=== PATIENT | male | born 1955 | race Caucasian/White ===

== ENCOUNTER 2022-02-16 12:01 | Observation (INO) ==
[2022-02-16 13:58] LABS: Basophils # 0.1 10*3/uL (0.0-0.2); Basophils % 0.4 % (0.0-0.8); Eosinophils # 0.3 10*3/uL (0.0-0.87); Eosinophils % 2.2 % (0.00-10.9); Hematocrit 46.2 VOL% (42.0-52.0); Hemoglobin 15.2 GM/DL (14.0-18.0); Immature Granulocytes % 0.3 %; Immature Granulocytes Absolute 0.03 #; Lymphocytes % 17.2 % (21.2-54.2); Mean Corpuscular HGB Conc 32.9 GM/DL (32-36); Mean Corpuscular Volume 88.3 FL (87-102); Mean Platelet Volume 11.1 FL (9.6-12.0); Monocytes # 1.3 10*3/uL (0.11-0.8); Monocytes % 11.6 % (1.7-12.7); Neutrophils % 68.3 % (38.7-73.9); Platelet Count 195 T/CUMM (130-400); Red Blood Count 5.23 MC/CUMM (3.8-5.5); Red Cell Distribution Width 13.8 % (9.3-17.3); White Blood Count 11.5 T/CUMM (4-12)
[2022-02-16 14:17] LABS: Calcium 10.2 MG/DL (8.5-10.1); Osmolality,Calculated 282.5 MOS/KG (273-304); Potassium 4.3 MMOL/L (3.5-5.1)
[2022-02-16] MEDS ORDERED: MORPHINE 10 MG/1 ML VIAL IV STA (14:30)
[2022-02-16] MEDS ORDERED: ONDANSETRON 4 MG/2 ML VIAL IV STA (14:30)
[2022-02-16] MEDS ORDERED: MORPHINE 2 MG/1 ML SYRINGE ONE (14:39)
[2022-02-16] MEDS ORDERED: TEMAZEPAM 15 MG CAPSULE PO PRN (17:45)
[2022-02-16] MEDS ORDERED: ALUMINUM/MAGNES/SIMETH MAX STR 30 ML UDCUP PO PRN (17:45)
[2022-02-16] MEDS ORDERED: MORPHINE 2 MG/1 ML SYRINGE IV PRN (17:45)
[2022-02-16] MEDS ORDERED: MAGNESIUM HYDROXIDE SUSP 30 ML UDCUP PO PRN (17:45)
[2022-02-16] MEDS ORDERED: ONDANSETRON 4 MG/2 ML VIAL IV PRN (17:45)
[2022-02-16] MEDS: SODIUM CHLORIDE 0.9% 1,000 ML IV SCH (18:17)
[2022-02-16] MEDS: METOPROLOL SUCCINATE XL 25 MG TABLET PO SCH (20:13)
[2022-02-16] MEDS: CHOLECALCIFEROL 5,000 UNIT TABLET PO SCH (20:14)
[2022-02-16] MEDS: ROSUVASTATIN 20 MG TABLET PO SCH (20:15)
[2022-02-16] MEDS: ASPIRIN EC 81 MG TABLET PO SCH (20:15)
[2022-02-16] MEDS: FERROUS SULFATE 325 MG TABLET PO SCH (20:15)
[2022-02-16] MEDS: lisinopriL 20 MG TABLET PO SCH (20:16)
[2022-02-16] MEDS: CETIRIZINE 10 MG TABLET PO SCH (20:16)
[2022-02-16] MEDS: ZINC GLUCONATE 50 MG TABLET PO SCH (20:16)
[2022-02-16] MEDS: NIACIN 500 MG TABLET PO SCH (20:16)
[2022-02-16] MEDS: ASCORBIC ACID 500 MG TABLET PO SCH (20:16)
[2022-02-17] MEDS ORDERED: ROPIVACAINE 0.5% 30 ML VIAL ONE (06:30)
[2022-02-17] MEDS ORDERED: LIDOCAINE 1% 5 ML VIAL ONE (06:30)
[2022-02-17] MEDS ORDERED: DEXAMETHASONE 4 MG/1 ML VIAL ONE (06:30)
[2022-02-17] MEDS ORDERED: LIDOCAINE 2% 5 ML VIAL ONE ×2 (06:31→07:35)
[2022-02-17] MEDS ORDERED: fentaNYL 100 MCG/2 ML VIAL ONE (06:34)
[2022-02-17] MEDS ORDERED: MIDAZOLAM 2 MG/2 ML VIAL ONE (06:34)
[2022-02-17] MEDS ORDERED: LACTATED RINGERS 1,000 ML IV SCH (07:00)
[2022-02-17] MEDS ORDERED: ceFAZolin 2,000 MG/50 ML DUPLEX IV ONE (07:00)
[2022-02-17] MEDS ORDERED: ONDANSETRON 4 MG/2 ML VIAL ONE (07:35)
[2022-02-17] MEDS ORDERED: SEVOFLURANE 1 UNIT/15 MINUTE INH ONE (07:35)
[2022-02-17] MEDS ORDERED: propofoL 200 MG/20 ML VIAL IV ONE ×2 (07:35→07:52)
[2022-02-17] MEDS ORDERED: KETAMINE 500 MG/10 ML VIAL ONE (07:47)
[2022-02-17] MEDS ORDERED: LACTATED RINGERS 1,000 ML IV ONE (07:53)
[2022-02-17] MEDS ORDERED: GLYCOPYRROLATE 0.4 MG/2 ML VIAL ONE (08:03)
[2022-02-17] MEDS ORDERED: ePHEDrine 50 MG/ML VIAL ONE (08:08)
[2022-02-17] MEDS ORDERED: HYDROmorphone 1 MG/1 ML SYRINGE ONE (09:03)
[2022-02-17] MEDS ORDERED: HYDROmorphone 1 MG/1 ML SYRINGE IV PRN (09:03)
[2022-02-17] MEDS ORDERED: ONDANSETRON 4 MG/2 ML VIAL IV PRN (09:03)
[2022-02-17] MEDS: PANTOPRAZOLE 40 MG TABLET PO SCH (10:16)
[2022-02-17] MEDS: ceFAZolin 2,000 MG/50 ML DUPLEX IV SCH ×2 (14:30→22:40)
[2022-02-17] MEDS: SODIUM CHLORIDE 0.9% 1,000 ML IV SCH (15:22)
[2022-02-17] MEDS: ASPIRIN EC 81 MG TABLET PO SCH (22:40)
[2022-02-17] MEDS: FERROUS SULFATE 325 MG TABLET PO SCH (22:41)
[2022-02-17] MEDS: ROSUVASTATIN 20 MG TABLET PO SCH (22:41)
[2022-02-17] MEDS: lisinopriL 20 MG TABLET PO SCH (22:43)
[2022-02-17] MEDS: ASCORBIC ACID 500 MG TABLET PO SCH (22:43)
[2022-02-17] MEDS: NIACIN 500 MG TABLET PO SCH (22:43)
[2022-02-17] MEDS: METOPROLOL SUCCINATE XL 25 MG TABLET PO SCH (22:43)
[2022-02-17] MEDS: CETIRIZINE 10 MG TABLET PO SCH (22:44)
[2022-02-17] MEDS: CHOLECALCIFEROL 5,000 UNIT TABLET PO SCH (22:44)
[2022-02-17] MEDS: ZINC GLUCONATE 50 MG TABLET PO SCH (22:44)
[2022-02-18 07:59] VITALS: BP 106/66
[2022-02-18] MEDS: PANTOPRAZOLE 40 MG TABLET PO SCH (08:52)
== END 2022-02-18 10:40 | disposition home or self-care (01) ==
LOC: N.EDINP 12:01 → N.ED 12:01 → N.3E 17:44
PROVIDERS: ADMIT Orthopaedic Surgery; ATTEND Orthopaedic Surgery